=== PATIENT | female | born 1990 | race Caucasian/White ===

== ENCOUNTER → 2023-05-29 | Outpatient (CLI) | payer OTHER ==
--- NOTE | 2023-05-29 12:55 | US ---
EXAMINATION TYPE: Transabdominal DATE OF EXAM: 05/29/2023 12:35 PM COMPARISON: NONE CLINICAL INDICATION: Female, 33 years old with history of Z34.90 SUPERVISION OF ; - pat ient denies any signs or symptoms or relevant history EXAM PERFORMED: Transabdominal (TA) EXAM MEASUREMENTS: GESTATIONAL AGE / DATING Physician Established: By LMP (13 weeks/2 days) EDC: 12/02/2023 Dates by LMP: (13 weeks/2 days) EDC: 12/02/2023 Dates by First Scan: This is first scan EDC: NA Dates by Current Scan for: (14 weeks/1 days) EDC: 11/26/2023 MATERNAL ANATOMY Uterus: 11.1 x 10.0 x 10.3 cm Right Ovary: 2.6 x 1.9 x 2.8 cm Left Ovary: 4.0 x 1.7 x 1.7 cm Post CDS / Adnexa: WNL Presence of free fluid: NO Presence of corpus luteal cyst: Left Presence of subchorionic bleed: No GESTATION / SURVEY CRL: 8.09 (14 weeks/1 days) MSD: NA Yolk Sac (normal less than 6mm): Not seen Heart Rate: 150 bpm Rhythm: Normal IUP: Viable IUP Nuchal Translucency 10-14wks (normal less than 3mm): Unable to obtain due to lie and movement Age Appropriate Anatomy Cord Insertion: NA Limbs: NA Calvarium: NA Date of LMP: January Beta HcG (if available): not available Nabothian cyst noted within cervix IMPRESSION: 1. Single intrauterine gestation estimated at 14 weeks 1 day gestation based on the crown-rump length . Cardiac activity measures 150 bpm. 2. Some limitation on evaluation survey secondary to positioning
== END | disposition home or self-care (01) ==
LOC: RADUSWWP 12:08
PROVIDERS: ATTEND Obstetrics & Gynecology
DX: Z34.92 Encounter for supervision of normal pregnancy, unspecified, second trimester (principal); Z3A.14 14 weeks gestation of pregnancy
CPT/HCPCS: 76801

== ENCOUNTER 2023-06-16 09:17 | Emergency (ER) | payer OTHER ==
[2023-06-16 11:10] VITALS: RESP 16; TEMP 97.8
[2023-06-16 11:18] LABS: Basophils % (A) 0 %; Eosinophils % (A) 0 %; HCT 36.5 % (34.0-46.0); HGB 12.6 gm/dL (11.4-16.0); Lymphocytes # (A) 1.5 k/uL (1.0-4.8); Lymphocytes % (A) 12 %; MCH 30.1 pg (25.0-35.0); MCHC 34.7 g/dL (31.0-37.0); MCV 86.7 fL (80.0-100.0); Mean Platelet Volume 7.2; Monocytes # (A) 0.5 k/uL (0-1.0); Monocytes % (A) 4 %; Neutrophils # (A) 10.8 k/uL (1.3-7.7); Neutrophils % (A) 82 %; Platelet Count 370 k/uL (150-450); RBC 4.21 m/uL (3.80-5.40); RDW 13.3 % (11.5-15.5); WBC 13.1 k/uL (3.8-10.6)
--- NOTE | 2023-06-16 11:18 | US ---
EXAMINATION TYPE: US OB >= 14 wk fetus DATE OF EXAM: 06/16/2023 COMPARISON: US 05/29/2023 CLINICAL INDICATION: Female, 33 years old with history of vaginal bleeding in ; Vaginal blee ding x 1 hour. Pain. . TECHNIQUE: Transabdominal (TA) GESTATIONAL AGE / DATING Physician Established: (15 weeks/6 days) EDC: 12/02/2023 Dates by LMP: (15 weeks/6 days) EDC: 12/02/2023 Dates by First Scan: (16 weeks/5 days) EDC: 11/26/2023 Dates by Current Scan: (16 weeks/4 days) EDC: 11/27/2023 Beta HCG (if available): Not available SURVEY IUP: Single PLACENTA: Anterior PREVIA: No Previa NATALIE: 10.6 cm Normal CERVICAL LENGTH (transabdominal: norm > 3.0cm): 3.6 cm BIOMETRY PRESENTATION: Vertex LIE: Longitudinal BPD: 3.46 cm 16 weeks / 5 days HC: 12.38 cm 16 weeks / 2 days AC: 11.12 cm 17 weeks / 0 days FL: 1.99 cm 16 weeks / 0 days ESTIMATED WEIGHT IN GRAMS: 157 grams ESTIMATED WEIGHT IN LBS/OZ: 0 lbs. 6 oz. WEIGHT PERCENTAGE BASED ON ESTABLISHED DATES: 80% HC/AC: 1.11 Normal FL/AC: 18% HEART RATE: 142 bpm RHYTHM: Normal IMPRESSION: Single live intrauterine gestation with ultrasound age 16 weeks 4 days. No evidence for acute process .
[2023-06-16 11:28] LABS: ALT 18 U/L (4-34); AST 22 U/L (14-36); African American GFR (CKD) >90 (>60 ml/min/1.73 sqM); Albumin 3.8 g/dL (3.5-5.0); Alkaline Phosphatase 56 U/L (38-126); Anion Gap 9 mmol/L; Blood Urea Nitrogen 8 mg/dL (7-17); Calcium 9.2 mg/dL (8.4-10.2); Carbon Dioxide 23 mmol/L (22-30); Chloride 103 mmol/L (98-107); Glucose 75 mg/dL (74-99); Non-African American GFR(CKD) >90 (>60 ml/min/1.73 sqM); Sodium 135 mmol/L (137-145); Total Bilirubin 0.3 mg/dL (0.2-1.3); Total Protein 6.7 g/dL (6.3-8.2)
[2023-06-16 11:51] LABS: Appearance,Urine Clear (Clear); Bilirubin,Urine Negative (Negative); Blood,Urine Large (Negative); Color,Urine Light Yellow; Glucose,Urine (UA) Negative (Negative); Ketones,Urine Negative (Negative); Leukocyte Esterase,Urine Negative (Negative); Mucus,Urine Rare /hpf; Nitrite,Urine Negative (Negative); PH, Urine 7.5 (5.0-8.0); Protein,Urine Negative (Negative); RBC,Urine >182 /hpf (0-5); Squamous Epithelial Cell,Urine 5 /hpf (0-4); Urobilinogen,Urine <2.0 mg/dL (<2.0); WBC,Urine 6 /hpf (0-5)
--- NOTE | 2023-06-16 12:55 | ED ---
General Adult HPI - General Chief complaint: Vaginal Bleeding Stated complaint: Vaginal Bleeding, 16 wks Time Seen by Provider: 06/16/23 09:53 Source: patient, RN notes reviewed Mode of arrival: ambulatory Limitations: no limitations - History of Present Illness Initial comments: 32-year-old female who is G2 1, P0 presents the emergency department with a chief complaint of vaginal bleeding. Patient reports she is approximately 16 weeks . At approximately 08 100 this morning she had her first urinary void in the morning. She reports a quick "whoosh" of blood. She does reporrt passage of clots. This is her first . She is established with an METAL SPRAYER out of [place]. She denies dizziness and lightheadedness, fatigue. Denies any trauma or injury or preceding events leading to her symptoms. - Related Data Allergies Allergy/AdvReac Type Severity Reaction Status Date / Time Pertussis Vaccines AdvReac Unknown Verified 06/16/23 09:32 Review of Systems ROS Statement: Those systems with pertinent positive or pertinent negative responses have been documented in the HPI. ROS Other: All systems not noted in ROS Statement are negative. Past Medical History Past Medical History: No Reported History History of Any Multi-Drug Resistant Organisms: None Reported Past Surgical History: Orthopedic Surgery Past Psychological History: No Psychological Hx Reported Smoking Status: Never smoker Past Alcohol Use History: None Reported Past Drug Use History: None Reported General Exam - General Exam Comments Initial Comments: General: Alert, in no acute distress Head: atraumatic normocephalic. Eyes PERRL, EOMI intact, mucous membranes moist Respiratory: Lungs clear to auscultation bilaterally Cardiovascular: Rate regular rate and rhythm Abdominal: Soft without guarding or rebound Extremities: Normal inspection with full range of motion and normal capillary refill Neuroogic: alert and oriented 3, CN II-XII intact, able to ambulate with steady gait Skin: warm dry and intact with normal color : external exam is without any rashes, lesions, erythema. Vaginal canal with mild dark red blood Cervical os is visualized and is closed. There is no cervical motion tenderness for abnormal adnexal tenderness. Pelvic exam performed with Isabella ruth RN present. Limitations: no limitations Course Vital Signs 06/16/23 06/16/23 06/16/23 09:29 11:06 13:13 Temperature 98.3 F 97.8 F 97.8 F Pulse Rate 87 69 72 Respiratory 18 16 16 Rate Blood Pressure 132/91 124/76 124/84 O2 Sat by Pulse 100 100 100 Oximetry - Reevaluation(s) Reevaluation #1: 06/16/23 12:43 Should reevaluated and updated on results. Patient reports primary METAL SPRAYER is Dr. Dougherty out of [place]. Dr. Dougherty paged Medical Decision Making - Medical Decision Making Was pt. sent in by a medical professional or institution (, [facility]IA, RELIEF MAP MODELER, urgent care, hospital, or residential...) When possible be specific @ -[No] Did you speak to anyone other than the patient for history (EMS, parent, family, police, friend...)? What history was obtained from this source @ -[No] Did you review nursing and triage notes (agree or disagree)? Why? @ -[I reviewed and agree with nursing and triage notes] Were old charts reviewed (outside hosp., previous admission, EMS record, old EKG, old radiological studies, urgent care reports/EKG's, residential records)? Report findings @ -[No old charts were reviewed] Differential Diagnosis (chest pain, altered mental status, abdominal pain women, abdominal pain men, vaginal bleeding, weakness, fever, dyspnea, syncope, headache, dizziness, GI bleed, back pain, seizure, CVA, palpatations, mental health, musculoskeletal)? @ -[not applicable] EKG interpreted by me (3pts min.). @ -[As above] X-rays interpreted by me (1pt min.). @ -[None done] CT interpreted by me (1pt min.). @ -[None done] U/S interpreted by me (1pt. min.). @ -Ultrasound reveals single IUP without any evidence of placenta previa or subchorionic hemorrhage What testing was considered but not performed or refused? (CT, X-rays, U/S, labs)? Why? @ -[None] What meds were considered but not given or refused? Why? @ -[None] Did you discuss the management of the patient with other professionals (pr ofessionals i.e. , DELIA, RELIEF MAP MODELER, lab, RT, psych nurse, social media designer, dining room captain, teacher, chairman & chief executive officer, case worker)? Give summary @ -Attention to call PATIENT'S primary METAL SPRAYER, Dr. Dougherty however he was unreachable. Was smoking cessation discussed for >3mins.? @ -[No] Was critical care preformed (if so, how long)? @ -[No] Were there social determinants of health that impacted care today? How? (Homelessness, low income, unemployed, alcoholism, drug addiction, transportation, low edu. Level, literacy, decrease access to med. care, halfway, rehab)? @ -[No] Was there de-escalation of care discussed even if they declined (Discuss DNR or withdrawal of care, Hospice)? DNR status @ -[No] What co-morbidities impacted this encounter? (DM, HTN, Smoking, COPD, CAD, Cancer, CVA, ARF, Chemo, Hep., AIDS, mental health diagnosis, sleep apnea, morbid obesity)? @ -[None] Was patient admitted / discharged? Hospital course, mention meds given and route, prescriptions, significant lab abnormalities, going to OR and other pertinent info. @ -Discharged. This is a pleasant 33-year-old female who presents the emergency department with Vaginal bleeding. Patient had a thorough history and physical exam performed. Physical exam is essentially unremarkable. Heart rate regular rate and rhythm, lungs are to auscultation bilaterally abdomen soft nontender. Patient's exam with scant amount of blood in vaginal vault. Os is visualized and closed. No adnexal tenderness. Patient had laboratory studies and urinalysis which were unremarkable. I discussed the results in detail with the patient verbalized understanding all questions were addressed. She is agreeable with the plan for discharge home. Beta hCG is 43,000. Ultrasound reveals single IUP. Return precautions were discussed at length. Case is discussed, with Dr. Kruger ED attending who agrees with plan of care Undiagnosed new problem with uncertain prognosis? @ -[No] Drug Therapy requiring intensive monitoring for toxicity (Heparin, Nitro, Insulin, Cardizem)? @ -[No] Were any procedures done? @ -[No] Diagnosis/symptom? @ -Vaginal Bleeding in Acute, or Chronic, or Acute on Chronic? @ -Acute Uncomplicated (without systemic symptoms) or Complicated (systemic symptoms)? @ -Uncomplicated Side effects of treatment? @ -[No] Exacerbation, Progression, or Severe Exacerbation? @ -[No] Poses a threat to life or bodily function? How? (Chest pain, [place], [place], pneumonia, PE, COPD, DKA, ARF, appy, cholecystitis, CVA, Diverticulitis, Homicidal, Suicidal, threat to staff... and all critical care pts) @ -Low likelihood - Lab Data Result diagrams: 06/16/23 10:59 06/16/23 10:59 Lab Results 06/16/23 06/16/23 06/16/23 Range/Units 10:59 10:59 10:59 WBC 13.1 H (3.8-10.6) k/uL RBC 4.21 (3.80-5.40) m/uL Hgb 12.6 (11.4-16.0) gm/dL Hct 36.5 (34.0-46.0) % MCV 86.7 (80.0-100.0) fL MCH 30.1 (25.0-35.0) pg MCHC 34.7 (31.0-37.0) g/dL RDW 13.3 (11.5-15.5) % Plt Count 370 (150-450) k/uL MPV 7.2 Neutrophils % 82 % Lymphocytes % 12 % Monocytes % 4 % Eosinophils % 0 % Basophils % 0 % Neutrophils # 10.8 H (1.3-7.7) k/uL Lymphocytes # 1.5 (1.0-4.8) k/uL Monocytes # 0.5 (0-1.0) k/uL Eosinophils # 0.0 (0-0.7) k/uL Basophils # 0.0 (0-0.2) k/uL Sodium 135 L (137-145) mmol/L Potassium 4.0 (3.5-5.1) mmol/L Chloride 103 (98-107) mmol/L Carbon Dioxide 23 (22-30) mmol/L Anion Gap 9 mmol/L BUN 8 (7-17) mg/dL Creatinine 0.43 L (0.52-1.04) mg/dL Est GFR (CKD-EPI)AfAm >90 (>60 ml/min/1.73 sqM) Est GFR (CKD-EPI)NonAf >90 (>60 ml/min/1.73 sqM) Glucose 75 (74-99) mg/dL Calcium 9.2 (8.4-10.2) mg/dL Total Bilirubin 0.3 (0.2-1.3) mg/dL AST 22 (14-36) U/L ALT 18 (4-34) U/L Alkaline Phosphatase 56 (38-126) U/L Total Protein 6.7 (6.3-8.2) g/dL Albumin 3.8 (3.5-5.0) g/dL HCG, Quant 29675.8 mIU/mL Urine Color Light Yellow Urine Appearance Clear (Clear) Urine pH 7.5 (5.0-8.0) Ur Specific Pratts 1.010 (1.001-1.035) Urine Protein Negative (Negative) Urine Glucose (UA) Negative (Negative) Urine Ketones Negative (Negative) Urine Blood Large H (Negative) Urine Nitrite Negative (Negative) Urine Bilirubin Negative (Negative) Urine Urobilinogen <2.0 (<2.0) mg/dL Ur Leukocyte Esterase Negative (Negative) Urine RBC >182 H (0-5) /hpf Urine WBC 6 H (0-5) /hpf Ur Squamous Epith Cells 5 H (0-4) /hpf Urine Mucus Rare H (None) /hpf Blood Type Blood Type Recheck Bld Type Recheck Status 06/16/23 Range/Units 11:04 WBC (3.8-10.6) k/uL RBC (3.80-5.40) m/uL Hgb (11.4-16.0) gm/dL Hct (34.0-46.0) % MCV (80.0-100.0) fL MCH (25.0-35.0) pg MCHC (31.0-37.0) g/dL RDW (11.5-15.5) % Plt Count (150-450) k/uL MPV Neutrophils % % Lymphocytes % % Monocytes % % Eosinophils % % Basophils % % Neutrophils # (1.3-7.7) k/uL Lymphocytes # (1.0-4.8) k/uL Monocytes # (0-1.0) k/uL Eosinophils # (0-0.7) k/uL Basophils # (0-0.2) k/uL Sodium (137-145) mmol/L Potassium (3.5-5.1) mmol/L Chloride (98-107) mmol/L Carbon Dioxide (22-30) mmol/L Anion Gap mmol/L BUN (7-17) mg/dL Creatinine (0.52-1.04) mg/dL Est GFR (CKD-EPI)AfAm (>60 ml/min/1.73 sqM) Est GFR (CKD-EPI)NonAf (>60 ml/min/1.73 sqM) Glucose (74-99) mg/dL Calcium (8.4-10.2) mg/dL Total Bilirubin (0.2-1.3) mg/dL AST (14-36) U/L ALT (4-34) U/L Alkaline Phosphatase (38-126) U/L Total Protein (6.3-8.2) g/dL Albumin (3.5-5.0) g/dL HCG, Quant mIU/mL Urine Color Urine Appearance (Clear) Urine pH (5.0-8.0) Ur Specific Pratts (1.001-1.035) Urine Protein (Negative) Urine Glucose (UA) (Negative) Urine Ketones (Negative) Urine Blood (Negative) Urine Nitrite (Negative) Urine Bilirubin (Negative) Urine Urobilinogen (<2.0) mg/dL Ur Leukocyte Esterase (Negative) Urine RBC (0-5) /hpf Urine WBC (0-5) /hpf Ur Squamous Epith Cells (0-4) /hpf Urine Mucus (None) /hpf Blood Type A Positive Blood Type Recheck No Previous Record Bld Type Recheck Status [facility] ONLY Disposition Clinical Impression: Vaginal bleeding Disposition: HOME SELF-CARE Condition: Stable Additional Instructions: Please allow for pelvic rest Please do not participate in strenuous exercise or activity PLease follow up with OB, Dr. Dougherty on 06/19/2022 Return have a bleeding, increased vaginal cramping with vaginal pain or heavy clots develop Is patient prescribed a controlled substance at d/c from ED?: No Referrals: None,Stated [Primary Care Provider] - 1-2 days Sascha Aj MD [STAFF PHYSICIAN] - 1-2 days Forms: PH Area PCPs Time of Disposition: 12:51
[2023-06-16 13:27] VITALS: BP 124/84; PULSE 72
== END 2023-06-16 13:13 | disposition home or self-care (01) ==
LOC: EC 09:17
DX: O46.92 Antepartum hemorrhage, unspecified, second trimester (principal); Z88.8 Allergy status to other drugs, medicaments and biological substances; Z3A.16 16 weeks gestation of pregnancy
CPT/HCPCS: 36415; 76805; 80053; 81001; 84702; 85025; 86900; 86901; 99284

== ENCOUNTER → 2023-07-05 | Outpatient (CLI) | payer OTHER ==
--- NOTE | 2023-07-05 16:15 | US ---
EXAMINATION TYPE: US OB anatomy transabd DATE OF EXAM: 07/05/2023 COMPARISON: US 06/16/2023 CLINICAL INDICATION: Female, 33 years old with history of Z34.90 ENCNTR FOR SUPRVSN OF NORMAL PREGNAN CY, UNS; . Anatomy. TECHNIQUE: Transabdominal (TA) EXAM MEASUREMENTS: GESTATIONAL AGE / DATING Physician Established: (18 weeks/4 days) EDC: 12/02/2023 Dates by LMP: (18 weeks/5 days) EDC: 12/02/2023 Dates by First Scan: (19 weeks/3 days) EDC: 11/26/2023 Dates by Current Scan for: (19 weeks/2 days) (appropriate interval growth compared to 06/16/2023) EDC: 11/27/2023 SURVEY IUP: Single PLACENTA: Anterior. Anechoic area seen superior edge of placenta: 6.0 x 3.5 x 0.6 cm. Anechoic area seen within, suggestive of roldan measurin.1 x 1.1 x 1.9 cm. PREVIA: No previa NATALIE: 12.4 cm Normal CERVICAL LENGTH (transabdominal: norm > 3.0cm): 3.5 cm BIOMETRY PRESENTATION: Vertex BPD: 4.46 cm 19 weeks / 4 days HC: 16.35 cm 19 weeks / 1 day AC: 14.53 cm 19 weeks / 6 days FL: 2.76 cm 18 weeks / 4 days ESTIMATED WEIGHT IN GRAMS: 279 grams ESTIMATED WEIGHT IN LBS/OZ: 0 lbs. 10 oz. WEIGHT PERCENTAGE BASED ON ESTABLISHED DATE: 82 % (versus 80th percentile previously) HC/AC: 1.13 Normal FL/AC: 19% HEART RATE: 155 bpm RHYTHM: Normal ANATOMY SEEN (within normal limits): Lateral Vent (< 1 cm) 0.79 cm Cisterna Magna (< 1.1 cm) 0.29 cm Nuchal Fold (< 0.6 cm) 0.35 cm Cerebellum (varies with age) 1.88 cm Choroid Plexus (bilateral) Midline Falx Cavus Septi Pellucidi Four Chamber Heart Outflow tracts: RVOT Stomach Situs Nose / Lips Diaphragm Kidneys (bilateral) (the renal pelves measure up to 2.1 and 2.4 mm, respectively) Bladder Cord Insert Three Vessel Cord Longitudinal Spine Transverse Spine Arms (bilateral) Legs (bilateral) ANATOMY SEEN BY SUBOPTIMAL (due to position) Outflow tracts: LVOT Scale Operator notes: Bilateral renal pelves appears prominent, but still measure less than 4 mm (< 4 mm up to 28 weeks is wnl). IMPRESSION: 1. Single live intrauterine with physician established gestational age of 18 weeks 4 days. Current ultrasound biometry is slightly larger but concordant at 19 weeks 2 days with appropriate int erval growth compared to 06/16/2023. This places the child at the 82nd percentile for weight. 2. The LVOT was suboptimally visualized. Patient can be scheduled for a rescan in 1 to 2 weeks if angeline ired. 3. Prominent bilateral renal pelves but still within acceptable limits. Otherwise, the remaining feta l anatomy appears normal. 4. Anterior placenta. No previa. There is a focal cystic area along the superior margin of the placen ta measuring 6.0 x 3.5 x 0.6 cm. Unclear if this represents a small interval subchorionic bleed. Ther e is an additional 1.9 cm area within the substance of the placenta, probably large venous roldan. Chor ioangioma is a less likely consideration. Both of these areas can also be reassessed at the patient's follow-up.
== END | disposition home or self-care (01) ==
LOC: RADUSWWP 13:30
PROVIDERS: ATTEND Obstetrics & Gynecology
DX: Z34.92 Encounter for supervision of normal pregnancy, unspecified, second trimester (principal); Z3A.19 19 weeks gestation of pregnancy
CPT/HCPCS: 76811

== ENCOUNTER → 2023-08-03 | Outpatient (CLI) | payer OTHER ==
--- NOTE | 2023-08-05 17:03 | US ---
EXAMINATION TYPE: US OB anatomy transabd DATE OF EXAM: 08/03/2023 COMPARISON: NONE CLINICAL INDICATION: Female, 33 years old with history of Z34.90 ENCNTR FOR SUPRVSN OF NORMAL PREGNAN CY, UNS; anatomy done last month also, dilated renal pelvis and reassess LVOT TECHNIQUE: OBTA EXAM MEASUREMENTS: GESTATIONAL AGE / DATING Physician Established: (22 weeks/5 days) EDC: 12/02/2023 Dates by LMP: (22 weeks/5 days) EDC: 12/02/2023 Dates by First Scan: (22 weeks/5 days) EDC: 12/02/2023 Dates by Current Scan for: (23 weeks/3 days) EDC: 11/27/2023 SURVEY IUP: Single PLACENTA: Anterior - normal appearing lakes seen PREVIA: No previa NATALIE: 14.1 cm Normal CERVICAL LENGTH (transabdominal: norm > 3.0cm): 4.1 cm BIOMETRY PRESENTATION: Vertex LIE: Longitudinal BPD: 5.9 cm 24 weeks / 2 days HC: 21.1 cm 23 weeks / 1 days AC: 19.1 cm 23 weeks / 6 days FL: 3.8 cm 22 weeks / 0 days ESTIMATED WEIGHT IN GRAMS: 561 grams ESTIMATED WEIGHT IN LBS/OZ: 1 lbs. 4 oz. WEIGHT PERCENTAGE BASED ON ESTABLISHED DATE: 61 % (versus 82nd percentile, previously) HC/AC: 1.1 Normal FL/AC: 20 Normal HEART RATE: 136 bpm RHYTHM: Normal ANATOMY SEEN (within normal limits): * Lateral Vent (< 1 cm) 0.5 cm * Cisterna Magna (< 1.1 cm) 0.4 cm * Nuchal Fold (< 0.6 cm) 0.2 cm * Cerebellum (varies with age) 23.6 cm Choroid Plexus (bilateral) Midline Falx Cavus Septi Pellucidi Four Chamber Heart Outflow tract: RVOT Stomach Situs Diaphragm Kidneys (bilateral) - 0.3cm and 0.3cm, still wnl (increased from 2.4 mm, previously) Bladder Cord Insert Three Vessel Cord Longitudinal Spine Transverse Spine Arms (bilateral) Legs (bilateral) ANATOMY SUBOPTIMALLY VISUALIZED: Outflow tract: LVOT (remains suboptimal visualization. The provided images do not delineate the inte rventricular septum) Nose / Lips IMPRESSION: 1. Single live intrauterine with established gestational age of 22 weeks 5 days. Current ul trasound biometry remains slightly larger at 23 weeks 3 days (moving the EFW% from 82% now to 61%). 2. The LVOT still remain suboptimally visualized. Also, now the nose/lips are suboptimally visualized . The remaining anatomy appears normal. Note that the renal pelves are slightly prominent at 3 mm but still fall within acceptable limits (increased from 2.4 mm, previously)
== END | disposition home or self-care (01) ==
LOC: RADUSWWP 12:48
PROVIDERS: ATTEND Obstetrics & Gynecology
DX: Z34.90 Encounter for supervision of normal pregnancy, unspecified, unspecified trimester (principal); Z3A.22 22 weeks gestation of pregnancy
CPT/HCPCS: 76811

== ENCOUNTER 2023-11-22 10:21 | Inpatient (IN) | payer OTHER ==
[2023-11-22] MEDS ORDERED: METHYLERGONOVINE 0.2 MG/ML 1 ML AMP IM PRN (10:50)
[2023-11-22] MEDS ORDERED: CARBOPROST TROMETHAMINE 250 MCG/ML 1 ML AMP IM PRN (10:50)
[2023-11-22] MEDS ORDERED: TERBUTALINE 1 MG/ML VIAL SQ PRN (10:50)
[2023-11-22] MEDS ORDERED: miSOPROStoL 200 MCG TAB PO PRN (10:50)
[2023-11-22] MEDS ORDERED: TRANEXAMIC 1,000 MG/100ML-NACL 1,000 MG in EMPTY BAG 1 BAG IV PRN (10:50)
[2023-11-22] MEDS ORDERED: OXYTOCIN 10 UNIT/ML 1 ML VIAL IM PRN (10:50)
[2023-11-22] MEDS ORDERED: LIDOCAINE 0.5% (PF) 5 MG/ML (50 ML SDV) SQ PRN (10:50)
[2023-11-22] MEDS: LACTATED RINGERS 1,000 ML IV SCH (11:15)
[2023-11-22] MEDS: OXYTOCIN 30 UNITS/500 ML NS 30 UNIT in SALINE 1 500ML.BAG IV SCH (11:20)
[2023-11-22 11:40] LABS: Basophils % (A) 0 %; Eosinophils # (A) 0.1 k/uL (0-0.7); Eosinophils % (A) 1 %; HCT 38.3 % (34.0-46.0); Lymphocytes # (A) 1.6 k/uL (1.0-4.8); Lymphocytes % (A) 11 %; MCH 29.7 pg (25.0-35.0); MCHC 33.8 g/dL (31.0-37.0); Mean Platelet Volume 8.6; Monocytes # (A) 0.6 k/uL (0-1.0); Monocytes % (A) 4 %; Neutrophils # (A) 11.8 k/uL (1.3-7.7); Neutrophils % (A) 82 %; Platelet Count 319 k/uL (150-450); RBC 4.36 m/uL (3.80-5.40); RDW 13.2 % (11.5-15.5); WBC 14.3 k/uL (3.8-10.6)
[2023-11-22] MEDS ORDERED: ROPIVACAINE 5 MG/ML 30 ML VIAL ONE (17:53)
[2023-11-22] MEDS ORDERED: fentaNYL (PF) 50 MCG/ML 5 ML AMP ONE (17:53)
[2023-11-22] MEDS ORDERED: SODIUM CHLORIDE 0.9% 250 ML BAG ONE (17:53)
[2023-11-22] MEDS: AMPICILLIN 2,000 MG in SODIUM CHLORIDE 0.9% 100 ML IVPB STA (19:32)
[2023-11-22] MEDS ORDERED: diphenhydrAMINE 50 MG/ML 1 ML VIAL IVP PRN ×2 (23:12)
[2023-11-22] MEDS ORDERED: diphenhydrAMINE 25 MG CAP PO PRN (23:12)
[2023-11-22] MEDS ORDERED: diphenhydrAMINE 50 MG CAP PO PRN (23:12)
[2023-11-22] MEDS ORDERED: BENZOCAINE/MENTHOL SPRAY 1 GM/SPRAY AEROSOL TOPICAL PRN (23:12)
[2023-11-22] MEDS ORDERED: LANOLIN CREAM 1 GM TUBE TOPICAL PRN (23:12)
[2023-11-22] MEDS ORDERED: ZOLPIDEM 5 MG TAB PO PRN (23:12)
[2023-11-22] MEDS ORDERED: SIMETHICONE 80 MG CHEWABLE PO PRN (23:12)
[2023-11-22] MEDS ORDERED: HYDROCORTISONE 2.5% RECTAL CREAM 30 GM TUBE RECTAL PRN (23:12)
[2023-11-23] MEDS: AMPICILLIN 1,000 MG in SODIUM CHLORIDE 0.9% 50 ML IVPB SCH (02:51)
[2023-11-23 06:26] LABS: Basophils # (A) 0.1 k/uL (0-0.2); Basophils % (A) 0 %; Eosinophils % (A) 0 %; HCT 34.8 % (34.0-46.0); HGB 11.5 gm/dL (11.4-16.0); Lymphocytes # (A) 1.8 k/uL (1.0-4.8); Lymphocytes % (A) 9 %; MCH 29.4 pg (25.0-35.0); MCV 88.9 fL (80.0-100.0); Mean Platelet Volume 8.9; Monocytes % (A) 5 %; Neutrophils # (A) 17.2 k/uL (1.3-7.7); Neutrophils % (A) 84 %; Platelet Count 278 k/uL (150-450); RBC 3.91 m/uL (3.80-5.40); RDW 12.8 % (11.5-15.5); WBC 20.4 k/uL (3.8-10.6)
--- NOTE | 2023-11-23 07:55 | P.HPOB ---
History of Present Illness H&P Date: 11/22/23 Chief Complaint: SROM 33 year old presented at 38 weeks 4 days with SROM at 3am. She presented around 10am with + amniosure but cervix was FT/100/-2. She was donn irregularly. Pt admitted for pitocin augmentation and induction of labor. FHT 135 with moderate variability and reactive. Review of Systems All systems: negative Constitutional: Denies chills, Denies fever Eyes: denies blurred vision, denies pain Ears, nose, mouth and throat: Denies headache, Denies sore throat Cardiovascular: Denies chest pain, Denies shortness of breath Respiratory: Denies cough Gastrointestinal: Denies abdominal pain, Denies diarrhea, Denies nausea, Denies vomiting Genitourinary: Denies dysuria, Denies hematuria Musculoskeletal: Denies myalgias Integumentary: Denies pruritus, Denies rash Neurological: Denies numbness, Denies weakness Psychiatric: Denies anxiety, Denies depression Endocrine: Denies fatigue, Denies weight change Past Medical History Past Medical History: No Reported History History of Any Multi-Drug Resistant Organisms: None Reported Past Surgical History: Orthopedic Surgery Past Anesthesia/Blood Transfusion Reactions: No Reported Reaction Past Psychological History: Anxiety, Depression Smoking Status: Never smoker Past Alcohol Use History: None Reported Past Drug Use History: None Reported - Past Family History Mother Family Medical History: Thyroid Disorder Medications and Allergies Home Medications Medication Instructions Recorded Confirmed Type Vit No.179/Iron/Folic 1 each PO DAILY 11/22/23 11/22/23 History [ Tablet] Allergies Allergy/AdvReac Type Severity Reaction Status Date / Time Pertussis Vaccines AdvReac Unknown Verified 11/22/23 10:42 Exam Osteopathic Statement: *. No significant issues noted on an osteopathic structural exam other than those noted in the History and Physical/Consult. Vital Signs Temp Pulse Resp BP Pulse Ox 11/23/23 04:00 98.4 F 92 16 110/67 97 11/22/23 23:57 98.1 F 95 16 123/74 97 11/22/23 23:42 98.2 F 94 16 124/67 97 11/22/23 23:27 95 16 121/65 98 11/22/23 23:12 99.0 F 100 16 127/68 97 11/22/23 22:57 101 H 16 130/70 97 11/22/23 22:42 101 H 16 133/73 97 11/22/23 22:27 98.2 F 101 H 16 136/69 97 11/22/23 22:12 106 H 16 148/65 11/22/23 21:57 106 H 16 129/71 11/22/23 10:40 98.2 F 62 16 113/64 98 Intake and Output 11/22/23 11/23/23 11/23/23 22:59 06:59 14:59 Intake Total 198.933 Output Total 200 190 Balance -1.067 -190 Intake: Intake, IV Titration 198.933 Amount Oxytocin 30 Units/500 ml 198.933 Ns 30 unit In Saline 1 500ml.bag @ Per Protocol IV .Q0M [facility] Rx#:[id number] Output: Estimated Blood Loss 200 Output, Quantitative 190 Blood Loss Other: # Voids 2 Heart: Regular rate and rhythm Lungs: Clear to auscultation bilaterally Abdomen: Soft, nontender Extremities: Negative Homans sign Results Result Diagrams: 11/23/23 05:58 Abnormal Lab Results - Last 24 Hours (Table) 11/22/23 11/23/23 Range/Units 11:15 05:58 WBC 14.3 H 20.4 H (3.8-10.6) k/uL Neutrophils # 11.8 H 17.2 H (1.3-7.7) k/uL Assessment and Plan (1) Spontaneous rupture of amniotic membranes Current Visit: Yes Status: Acute Code(s): NCS7355 - SNOMED Code(s): 359097175 (2) 38 weeks gestation of Current Visit: Yes Status: Acute Code(s): Z3A.38 - 38 WEEKS GESTATION OF SNOMED Code(s): 40742771 Plan: 1. admit to [facility] 2. pitocin augmentation 3. anticipate normal vaginal delivery
--- NOTE | 2023-11-23 07:57 | P.PROBDLV ---
Vaginal Delivery Note - . Vaginal Delivery Note: 33 year old presented at 38 weeks 4 days with SROM at 3am. She presented around 10am with + amniosure but cervix was FT/100/-2. She was donn irregularly. Pt admitted for pitocin augmentation and induction of labor. FHT 135 with moderate variability and reactive. Patient was admitted and Pitocin augmentation was started. She progressed quite slowly at first but when she was very uncomfortable she did get an epidural but was only 1 cm dilated at that time. After the epidural she quickly progressed to complete at 2130. She pushed, delivered a viable male at 2141 over intact perineum under epidural anesthesia. Head delivered OA, nuchal cord 1 easily reduced, anterior shoulder delivered gentle downward guidance followed by posterior shoulder and rest of body. Nose and mouth bulb suctioned, cord clamped and cut, infant placed mother's abdomen. Apgars 9, 9, weight 7 lbs. 13 oz. Placenta delivered spontaneously, intact with three-vessel cord at 2144. Vagina, cervix, and perineum were inspected. First-degree midline laceration was repaired with 3-0 Vicryl. Estimated blood loss 200 mL. Mother and baby in stable condition.
--- NOTE | 2023-11-23 08:00 | P.DS ---
Providers Date of admission: 11/22/23 10:51 Expected date of discharge: 11/23/23 Attending physician: Charlotte Grant Primary care physician: Stated None - Discharge Diagnosis(es) (1) Spontaneous rupture of amniotic membranes Current Visit: Yes Status: Resolved (2) 38 weeks gestation of Current Visit: Yes Status: Resolved (3) Status post normal vaginal delivery Current Visit: Yes Status: Acute Hospital Course: She presented was for details rupture membranes. She underwent Pitocin augmentation and a normal vaginal delivery. course is uneventful. She denies nausea, vomiting, chest pain, shortness of breath or calf pain. Patient will be discharged home day #1 in stable condition to follow- up with me in 6 weeks. Plan - Discharge Summary New Discharge Prescriptions: New Ibuprofen [Motrin] 600 mg PO Q6HR PRN #30 tab PRN Reason: Mild Pain (Scale 1 To 3) No Action Vit No.179/Iron/Folic [ Tablet] 1 each PO DAILY Discharge Medication List Vit No.179/Iron/Folic [ Tablet] 1 each PO DAILY 11/22/23 [History] Ibuprofen [Motrin] 600 mg PO Q6HR PRN #30 tab 11/23/23 [Rx] Follow up Appointment(s)/Referral(s): Charlotte Grant DO [Doctor of Osteopathic Medicine] - 6 Weeks Discharge Disposition: HOME SELF-CARE
[2023-11-23] MEDS: SENNOSIDES-DOCUSATE SODIUM 1 EACH TAB PO SCH (08:05)
[2023-11-23] MEDS: IBUPROFEN 600 MG TAB PO PRN (12:07)
[2023-11-23] MEDS: ACETAMINOPHEN TAB 325 MG TAB PO PRN (20:09)
[2023-11-24 09:39] VITALS: RESP 18
[2023-11-24 15:48] VITALS: BP 138/82; PULSE 80; TEMP 98.6
== END 2023-11-24 18:10 | disposition home or self-care (01) | DRG 560 ==
LOC: FBPOP 10:21 → 4FBP 10:51
PROVIDERS: ADMIT Obstetrics & Gynecology; ATTEND Obstetrics & Gynecology
PROC: 10E0XZZ Delivery of Products of Conception, External Approach (ICD-10-PCS; principal; 2023-11-22)
PROC: 0HQ9XZZ Repair Perineum Skin, External Approach (ICD-10-PCS; principal; 2023-11-22)
DX: O70.0 First degree perineal laceration during delivery (principal); O69.81X0 Labor and delivery complicated by cord around neck, without compression, not applicable or unspecified; Z37.0 Single live birth; Z3A.38 38 weeks gestation of pregnancy; Z28.310 Unvaccinated for COVID-19; Z28.21 Immunization not carried out because of patient refusal; Z88.7 Allergy status to serum and vaccine
CPT/HCPCS: 84112; 85025; 86850; 86900; 86901; 99213